=== PATIENT | female | born 1965 | race Caucasian/White ===

== ENCOUNTER 2017-08-14 13:47 | Emergency (ER) | payer BC ==
[2017-08-14 14:09] VITALS: BP 127/69
[2017-08-14] MEDS ORDERED: DOXYcycline CAP(*) 100 MG PO ONE (14:33)
--- NOTE | 2017-08-14 14:33 | UC ---
Skin Complaint HPI - HPI Summary HPI Summary: 52 y/o female presents to the urgent care c/o tick bite in her Rt side of mid back. [place]. She noticed this morning while she was taking a shower. Tick still alive with redness around. Pt denies Hx of tick bites, fever, RASHEED , joint pains, chest pain, [ End ] - History of Current Complaint Chief Complaint: UCSkin Time Seen by Provider: 08/14/17 14:18 Stated Complaint: TICK Hx Obtained From: Patient Hx Last Menstrual Period: 07/15/2017 Onset/Duration: Sudden Onset, Lasting Days - 1 day, Still Present Skin Exposure Onset/Duration: Days Ago - 1 day Timing: Constant Onset Severity: Mild Pain Intensity: 1 Pain Scale Used: 0-10 Numeric Location: Discrete - RT latral side of mid back Character: Redness Aggravating Factor(s): Touch Alleviating Factor(s): Nothing Associated Signs & Symptoms: Positive: Rash. Negative: Nausea, Vomiting, Numbness, Fever, Tenderness Related History: Possible Reaction to: Insect - Allergy/Home Medications Allergies/Adverse Reactions: Allergies Allergy/AdvReac Type Severity Reaction Status Date / Time No Known Allergies Allergy Verified 07/29/16 21:19 Home Medications: Home Medications NK [No Home Medications Reported] 08/14/17 [History Confirmed 08/14/17] Review of Systems Constitutional: Negative Skin: Rash - tick bite on T lateral side of mid back Eyes: Negative ENT: Negative Respiratory: Negative Cardiovascular: Negative Gastrointestinal: Negative Genitourinary: Negative Motor: Negative Neurovascular: Negative Musculoskeletal: Negative Neurological: Negative Psychological: Negative Is Patient Immunocompromised?: No All Other Systems Reviewed And Are Negative: Yes PMH/Surg Hx/FS Hx/Imm Hx Previously Healthy: Yes Endocrine History: Hypothyroidism - Surgical History Surgical History: None - Family History Known Family History: Positive: Hypertension, Diabetes Negative: Cardiac Disease - Social History Occupation: Employed Full-time Lives: With Family Alcohol Use: Rare Substance Use Type: None Smoking Status (MU): Never Smoked Tobacco Physical Exam Triage Information Reviewed: Yes Vital Signs: Initial Vital Signs Temp 98.4 F 08/14/17 14:07 Pulse 75 08/14/17 14:07 Resp 18 08/14/17 14:07 BP 127/69 08/14/17 14:07 Pulse Ox 100 08/14/17 14:07 - Additional Comments Vital Signs Reviewed: Yes General: weel developed,well nourished female, w/o any apparent distress Eyes: Positive: Conjunctiva Clear - PERRLA, EOMI ENT: Positive: Normal ENT inspection, Hearing grossly normal, Pharynx normal, TMs normal Neck: Positive: Supple, Nontender, No Lymphadenopathy Respiratory: Positive: Chest nontender, Lungs clear, Normal breath sounds Cardiovascular: Positive: RRR, No Murmur, Pulses Normal Abdomen Description: Positive: Nontender, No Organomegaly, Soft. Negative: CVA Tenderness (R), CVA Tenderness (L) Bowel Sounds: Positive: Present Musculoskeletal: Positive: Strength Intact, ROM Intact, No Edema Neurological Exam: Normal Psychological Exam: Normal Skin: Positive: rashes - Rt lateral side of mid back with and engorged alive tick with surrounding erythema, non tender to palpation. tick removed with twister technique and cleaned with alcohol wipe, no swelling or drainage observed. Course/Dx - Course Course Of Treatment: 52 y/o female presents to the urgent care c/o tick bite in her Rt side of mid back. Pt states [place]. She noticed this morning while she was taking a shower. Tick still alive with redness around. Pt denies Hx of tick bites, fever, RASHEED , joint pains, chest pain. Hx obtained. Tick was removed from Rt lateral side of mid back using twister technique. After tick removal and the skin cleansing. Antibiotic prophylaxis with Doxycycline given to the patient to prevent lyme Disease.. Pt tolerated well medication. Pt advised to observe the area for the development or Erythema Migrans for upto 30 days following exposure. Advised if she develops fever or erythema Migrans to return to the clinic or PCP for further treatment .Pt understood and agreed with plan of care. - Differential Diagnoses - Skin Complaint Differential Diagnoses: Cellulitis, Local Allergic Reaction, Lymphadenitis, Tick Born Illness, Urticaria, Other - bed bugs, insect bite - Diagnoses Provider Diagnoses: 1- RT lateral side of mid back with tick bite Discharge - Discharge Plan Condition: Stable Disposition: HOME Patient Education Materials: Tick Bite (ED) Referrals: Ronaldo CHRISTINA,Mely Posada [Primary Care Provider] - If Needed Additional Instructions: 1-Tick was removed from your Rt side of mid back using twister technique. 2- Please observe the area for the development or Erythema Migrans for upto 30 days following exposure. Components of the tick saliva can cause transient erythema that should not be confused with Erythema Migrans. 3-Antibiotic prophylaxis with Doxycycline was given to you today to prevent lyme Disease. 4- If your develop a bull's eye rash, fever, joint pain, chest pain, headache please return to your PCP or the urgent care for further treatment.
== END 2017-08-14 14:57 | disposition home or self-care (01) ==
LOC: UCEAST 13:47
DX: S20.461A Insect bite (nonvenomous) of right back wall of thorax, initial encounter (principal); W57.XXXA Bitten or stung by nonvenomous insect and other nonvenomous arthropods, initial encounter; Y93.9 Activity, unspecified; Y92.9 Unspecified place or not applicable; Y99.9 Unspecified external cause status
CPT/HCPCS: 99212; A9270-GY; G0463